=== PATIENT | male | born 1960 | race African-American/Black ===

== ENCOUNTER 2019-08-11 13:27 | Inpatient (IN) | payer OTHER ==
[2019-08-11 14:08] VITALS: BMI 21.1
--- NOTE | 2019-08-11 15:38 | HP ---
COWS - Scale Resting Pulse: 1= MI 81-100 Sweatin= Chills/Flushing Restless Observation: 1= Difficult to Sit Still Pupil Size: 0= Normal to Room Light Bone or Joint Aches: 0= None Runny Nose/ Eye Tearin= None GI Upset > 30mins: 0= None Tremor Observation: 0= None Yawning Observation: 0= None Anxiety or Irritability: 2=Irritable/Anxious Goose Flesh Skin: 3=Piloerection COWS Score: 8 CIWA Score Nausea/Vomitin-No Nausea/No Vomiting Muscle Tremors: 1-None Visible, but [place] Anxiety: 4-Mod. Anxious/Guarded Agitation: 1-Slight > Activity Paroxysmal Sweats: No Perspiration Orientation: 2-Disoriented Date<2 days Tacttile Disturbances: 0-None Auditory Disturbances: 0-None Visual Disturbances: 0-None Headache: 0-None Present CIWA-Ar Total Score: 8 - Admission Criteria OASAS Guidelines: Admission for Medically Managed Detox: Requires at least one of the followin. CIWA greater than 12 2. Seizures within the past 24 hours 3. Delirium tremens within the past 24 hours 4. Hallucinations within the past 24 hours 5. Acute intervention needed for co occurring medical disorder 6. Acute intervention needed for co occurring psychiatric disorder 7. Severe withdrawal that cannot be handled at a lower level of care (continued vomiting, continued diarrhea, abnormal vital signs) requiring intravenous medication and/or fluids 8. Admitting History and Physical - Smoking History Smoking history: Current every day smoker Aproximately how many cigarettes per day: 10 - Alcohol/Substance Use Hx Alcohol Use: Yes Admission [facility] Allergies/Adverse Reactions: Allergies Allergy/AdvReac Type Severity Reaction Status Date / Time No Known Allergies Allergy Verified 08/11/19 13:58 History of Present Illness: This report was requested by: Nnacy Hardy | Reference #: [id number] Others' Prescriptions Patient Name: Jean Pierre Manriquez Date: 1960 Address: [address] [place] [address] Sex: Male Rx Written Rx Dispensed Drug Quantity Days Supply Prescriber Name 09/17/2018 09/17/2018 suboxone 8 mg-2 mg sl film 15 5 [place] Vora 09/03/2018 09/03/2018 suboxone 8 mg-2 mg sl film 42 14 Mal Gallo MD 08/19/2018 08/19/2018 suboxone 8 mg-2 mg sl film 42 14 Leslie, Ora Hurley pt here for etoh use, reports 15 nips and 4 x 16 oz beer x 7 d/week x 13 years , latest use this morning , reports tremors if not drinking " i just drink for the pain in my body " , seizure d/o , on meds since November 2018 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 @ [facility] , [facility] last Thursday 2/2 nose bleed / seizures per description had CT head no active ICH . 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 latest use this morning . PMHX :HTN PSHX : brain surgery , hernia left inguinal PSYch : denies SI / HI SHX : has own residence [place] , denies legal issues , SSI pt HAS OWN BOTTLE OF KEPPRA 500 MG W/ INSTRUCTIONS 500 MG BID X 30 DAYS , DATED 11/26/18 , BOTTLE FULL, PT ADMITS TO NON- COMPLIANCE . denies PARTICIPATION IN MMTP Exam Limitations: Clinical Condition - Ebola screening Have you traveled outside of the country in the last 21 days: No (N) Have you had contact with anyone from an Ebola affected area: No Do you have a fever: No - Review of Systems Constitutional: Loss of Appetite, Unintentional Wgt. Loss (states lost 16 lbs) EENT: reports: Other (lost own glasses, uses reading glasses , lost dentures) Respiratory: reports: No Symptoms reported Cardiac: reports: No Symptoms Reported GI: reports: Poor Appetite : reports: Other (hesitancy) Musculoskeletal: reports: Joint Pain (knee OA asmita , does not use cane .) Integumentary: reports: No Symptoms Reported Neuro: reports: See HPI, Seizure Endocrine: reports: No Symptoms Reported Psychiatric: reports: Orientated x3, Anxious Patient History - Patient Medical History Hx Anemia: No Hx Asthma: No Hx Chronic Obstructive Pulmonary Disease (COPD): No Hx Cancer: No Hx Cardiac Disorders: No Hx Congestive Heart Failure: No Hx Hypertension: Yes (NO MEDS) Hx Hypercholesterolemia: Yes Hx Pacemaker: No HX Cerebrovascular Accident: No Hx Seizures: No Hx Dementia: No Hx Diabetes: No (NO SURE) Hx Gastrointestinal Disorders: No Hx Liver Disease: No Hx Genitourinary Disorders: No Hx Sexually Transmitted Disorders: No Hx Renal Disease (ESRD): No Hx Thyroid Disease: No Hx Human Immunodeficiency Virus (HIV): No Hx Hepatitis C: No Hx Depression: Yes (NO MEDS IN 15 YRS.) Hx Suicide Attempt: No Hx Bipolar Disorder: No Hx Schizophrenia: No - Patient Surgical History Past Surgical History: Yes Hx Neurologic Surgery: No Hx Cataract Extraction: No Hx Cardiac Surgery: Yes Hx Lung Surgery: No Hx Breast Surgery: No Hx Breast Biopsy: No Hx Abdominal Surgery: Yes (LT. INGUINAL HERNIA REPAIR) Hx Appendectomy: No Hx Cholecystectomy: No Hx Genitourinary Surgery: No Hx Section: No Hx Orthopedic Surgery: No Anesthesia Reaction: No - PPD History Date: 09/30/15 - Smoking Cessation Smoking history: Current every day smoker Aproximately how many cigarettes per day: 10 Hx Chewing Tobacco Use: No Initiated information on smoking cessation: Yes 'Breaking Loose' booklet given: 08/11/19 - Substances abused Alcohol Substance route: Oral Frequency: Daily Amount used: 15 NIPS, 4-16oz SAVANAH Age of first use: 11 Date of last use: 08/11/19 Heroin Substance route: Inhalation Frequency: Daily Amount used: 4 BAGS Age of first use: 11 Date of last use: 08/11/19 Admission Physical Exam BHS - Vital Signs Vital Signs: Vital Signs - 24 hr 08/11/19 13:59 Temperature 96.6 F L Pulse Rate 84 Respiratory 20 Rate Blood Pressure 93/63 - Physical General Appearance: Yes: Mild Distress, Moderate Distress, Irritable HEENTM: Yes: EOMI, Hearing grossly Normal, Normocephalic, Muffled/Hoarse Voice, Other (EDENTULOUS) Respiratory: Yes: Chest Non-Tender, Lungs Clear, Normal Breath Sounds, No Respiratory Distress, No Accessory Muscle Use Neck: Yes: No masses,lesions,Nodules, Trachea in good position Cardiology: Yes: Regular Rhythm, Regular Rate, S1, S2 Abdominal: Yes: Non Tender, Soft, Hernia (UMBILICAL) Musculoskeletal: Yes: full range of Motion, Gait Steady Extremities: Yes: Non-Tender, Tremors Neurological: Yes: Alert, Motor Strength 5/5 Integumentary: Yes: Warm - Diagnostic (1) Opioid dependence Current Visit: Yes Status: Chronic Qualifiers: Substance use status: with intoxication (2) Alcohol dependence with uncomplicated withdrawal Current Visit: Yes Status: Chronic Breathalyzer - Breathalyzer Breathalyzer: 0 Urine Drug Screen - Control Is test valid?: Yes Inpatient Rehab Admission - Rehab Decision to Admit Inpatient rehab admission?: No
[2019-08-11] MEDS ORDERED: MAGNESIUM CITRATE 300 ML BOTTLE PO PRN (16:28)
[2019-08-11] MEDS ORDERED: hydrOXYzine PAMOATE 25 MG CAPSULE (FP) PO PRN (16:28)
[2019-08-11] MEDS ORDERED: MAGNESIUM HYDROX 2400MG/30ML ORAL SUSPENSION 30 ML CUP PO PRN (16:28)
[2019-08-11] MEDS ORDERED: MAG HYDROX/AL HYDROX/SIMETH 30 ML UNIT-DOSE CUP PO PRN (16:28)
[2019-08-11] MEDS ORDERED: PROCHLORPERAZINE MALEATE 5 MG TABLET PO PRN (16:28)
[2019-08-11] MEDS ORDERED: MENTHOL/PHENOL 1 EACH UD MM PRN (16:28)
[2019-08-11] MEDS ORDERED: BISMUTH SUBSALICYLATE 524 MG/30 ML UD PO PRN (16:28)
[2019-08-11] MEDS ORDERED: IBUPROFEN 400 MG TABLET (FP) PO PRN (16:28)
[2019-08-11] MEDS ORDERED: ACETAMINOPHEN 325 MG TABLET (FP) PO PRN ×2 (16:28)
[2019-08-11] MEDS ORDERED: chlordiazePOXIDE HCL 25 MG CAPSULE PO PRN (16:30)
[2019-08-11] MEDS ORDERED: cloNIDine HCL 0.1 MG TABLET PO PRN (16:30)
[2019-08-11] MEDS ORDERED: METHADONE HCL 10 MG TABLET (FOR DETOX USE ONLY) PO ONE (18:00)
[2019-08-11] MEDS: chlordiazePOXIDE HCL 25 MG CAPSULE PO SCH ×2 (18:10→22:52)
[2019-08-11] MEDS ORDERED: THIAMINE HCL 100 MG TABLET (FP) PO SCH (22:00)
[2019-08-11] MEDS ORDERED: MELATONIN 5 MG TABLETS PO PRN (22:00)
[2019-08-12] MEDS: chlordiazePOXIDE HCL 25 MG CAPSULE PO SCH ×2 (05:37→10:22)
[2019-08-12 09:51] VITALS: BP 92/63; PULSE 76; TEMP 98.6
[2019-08-12] MEDS ORDERED: PRENATAL VITAMINS W/ FOLIC ACID TABLET (FP) PO SCH (10:00)
[2019-08-12] MEDS ORDERED: METHADONE HCL 5 MG TABLET (FOR DETOX USE ONLY) PO ONE (10:00)
[2019-08-12 10:30] LABS: HEMATOCRIT 31.1 % (35.4-49); HEMOGLOBIN 10.4 GM/dL (11.7-16.9); MCH 29.3 pg (25.7-33.7); MCHC 33.4 g/dl (32.0-35.9); MEAN CELL VOLUME 87.9 fl (80-96); PLATELET COUNT 134 K/MM3 (134-434); RBC 3.54 M/mm3 (4.00-5.60); RDW 36.4 % (11.9-15.9); WHITE BLOOD COUNT 2.7 K/mm3 (4.0-10.0)
--- NOTE | 2019-08-12 10:44 | EKG ---
Test Reason : Blood Pressure : / mmHG Vent. Rate : 083 BPM Atrial Rate : 083 BPM P-R Int : 160 ms QRS Dur : 086 ms QT Int : 402 ms P-R-T Axes : 070 -26 028 degrees QTc Int : 472 ms NORMAL SINUS RHYTHM POSSIBLE LEFT ATRIAL ENLARGEMENT SEPTAL INFARCT , AGE UNDETERMINED LEFT VENTRICULAR HYPERTROPHY ABNORMAL ECG NO PREVIOUS ECGS AVAILABLE Confirmed by MICHELE ZAMAN MD ([id number]) on 08/12/2019 10:44:04 AM Referred By: Confirmed By:MICHELE ZAMAN MD
[2019-08-12 10:58] LABS: ALBUMIN 3.5 g/dl (3.4-5.0); BILIRUBIN,TOTAL 0.6 mg/dL (0.2-1); BLOOD UREA NITROGEN 13.1 mg/dL (7-18); CALCIUM 8.8 mg/dL (8.5-10.1); CREATININE 0.8 mg/dL (0.55-1.3); POTASSIUM 3.9 mmol/L (3.5-5.1); TOT PROT 6.8 g/dl (6.4-8.2)
--- NOTE | 2019-08-12 12:06 | DS ---
[facility] Detox Discharge Summary Admission Date: 08/11/19 Discharge Date: 08/12/19 - History Present History: Alcohol Dependence, Opioid Dependence Pertinent Past History: pt wants to leave AMA today. Says he will f/u with PCP- has an appointment next month. d/w at length re MAT suboxone/methadone. Pt has two programs close to his residence. Pt has keppra- does not need any meds today - Physical Exam Results Vital Signs: Vital Signs Temperature 98.6 F 08/12/19 09:50 Pulse Rate 76 08/12/19 09:50 Respiratory Rate 18 08/12/19 09:50 Blood Pressure 92/63 08/12/19 09:50 O2 Sat by Pulse Oximetry (%) - Medication Discharge Medications: Ambulatory Orders levETIRAcetam [Keppra -] 500 mg PO Q12H 08/10/19 - AMA Did Patient Leave Against Medical Advice: Yes
[2019-08-13] MEDS ORDERED: chlordiazePOXIDE HCL 25 MG CAPSULE PO SCH (05:00)
[2019-08-13] MEDS ORDERED: METHADONE HCL 10 MG TABLET (FOR DETOX USE ONLY) PO ONE (10:00)
[2019-08-14] MEDS ORDERED: chlordiazePOXIDE HCL 10 MG CAPSULE PO PRN
[2019-08-14] MEDS ORDERED: chlordiazePOXIDE HCL 10 MG CAPSULE PO SCH (05:00)
[2019-08-14] MEDS ORDERED: METHADONE HCL 5 MG TABLET (FOR DETOX USE ONLY) PO ONE (06:00)
[2019-08-15] MEDS ORDERED: chlordiazePOXIDE HCL 10 MG CAPSULE PO SCH (05:00)
[2019-08-16] MEDS ORDERED: chlordiazePOXIDE HCL 10 MG CAPSULE PO ONE (05:00)
== END 2019-08-12 12:21 | disposition left against medical advice (07) | DRG 770 ==
LOC: YASAS 13:27 → Y3N 16:57
PROVIDERS: ADMIT Allergy & Immunology; ATTEND Allergy & Immunology
PROC: HZ2ZZZZ Detoxification Services for Substance Abuse Treatment (ICD-10-PCS; principal; 2019-08-11)
DX: F11.20 Opioid dependence, uncomplicated (principal); F10.230 Alcohol dependence with withdrawal, uncomplicated; F17.210 Nicotine dependence, cigarettes, uncomplicated; Z91.14 Patient's other noncompliance with medication regimen
CPT/HCPCS: 36415; 80053; 85027; 86593; 93005; 93010